=== PATIENT | male | born 1995 | race Caucasian/White ===

== ENCOUNTER → 2022-02-11 | Outpatient (CLI) | payer OTHER ==
--- NOTE | 2022-02-11 11:52 | XR ---
Right RIBS and chest x-ray HISTORY: Pain, trauma 2 views the right ribs, 2 views the chest, no comparisons There is no evident pneumothorax or pleural effusion. Cardiac mediastinal silhouette is within normal limits. No evident abnormal lung opacity. No evident displaced rib fracture. IMPRESSION: No acute abnormality. Bone scan could be performed if occult fractures suspected clinical ly.
--- NOTE | 2022-02-11 11:54 | XR ---
Right shoulder HISTORY: Pain 3 views of the right shoulder There is slight superior displacement of distal clavicle in relation to the acromion. No evident frac ture. IMPRESSION: Correlate for acromial clavicular separation.
== END | disposition home or self-care (01) ==
LOC: RADXRMAIN 11:05
PROVIDERS: ATTEND Emergency Medicine
DX: S46.011A Strain of muscle(s) and tendon(s) of the rotator cuff of right shoulder, initial encounter (principal)
CPT/HCPCS: 71046